=== PATIENT | male | born 1955 ===

== ENCOUNTER 2017-07-08 10:57 | Outpatient (CLI) | payer OTHER ==
--- NOTE | 2017-07-08 16:05 | Diagnostic Imaging Report ---
Indication: Abdominal pain, hepatitis C Technique: Brown-scale and duplex images of the upper abdomen were obtained Comparison: 07/11/2015 Findings: Gallbladder is unremarkable, without stones, wall thickening, nor pericholecystic fluid. Sonographic Brumfield's sign is negative. Common bile duct measures 9 mm in diameter. No intrahepatic biliary ductal dilatation. Liver demonstrates normal echogenicity, no focal abnormality. No surface nodularity. Portal vein and hepatic veins are patent. Pancreas is unremarkable. Spleen is unremarkable. Left kidney measures 10.8 cm in length. Right kidney measures 12.4 cm length. Both kidneys demonstrate normal echogenicity. There is no hydronephrosis. No focal abnormality . Non-aneurysmal abdominal aorta . No significant interim change other than the caliber of the common bile duct Impression: Mildly dilated common bile duct. Downstream obstruction not excludable. Correlate with liver function tests, consider MRCP for better characterization if clinically indicated No other significant abnormality. Negative for gallstones or hepatic abnormality
== END 2017-07-08 12:57 | disposition home or self-care (01) ==
LOC: ULS 10:57
DX: R10.9 Unspecified abdominal pain (principal); B19.20 Unspecified viral hepatitis C without hepatic coma
CPT/HCPCS: 76700

== ENCOUNTER → 2018-07-15 | Outpatient (CLI) | payer OTHER ==
--- NOTE | 2018-07-15 17:01 | Diagnostic Imaging Report ---
Indication: Abdominal pain Technique: Brown-scale and duplex images of the upper abdomen were obtained. Doppler interrogation of the hepatic and pancreatic vessels Comparison: 07/08/2017 Findings: Gallbladder is unremarkable, without stones, wall thickening, nor pericholecystic fluid. Sonographic Brumfield's sign is negative. Common bile duct measures 7 mm in diameter. No intrahepatic biliary ductal dilatation. Liver demonstrates normal echogenicity, no focal abnormality. No surface nodularity. Portal vein and hepatic veins are patent. Pancreas is unremarkable. Spleen is upper limits of normal in size, measuring 12.8 cm long axis dimension Left kidney measures 11.4 cm in length. Right kidney measures 11.8 cm length. Both kidneys demonstrate normal echogenicity. There is no hydronephrosis. . Focal area of increased echogenicity in the left renal sinus could represent a small calculus . Non-aneurysmal abdominal aorta . Impression: Borderline dilated common bile duct, also previously reported, probably baseline for this patient Negative for gallstones. No hepatic abnormality demonstrated Upper limits normal size spleen Small nonobstructive left lower pole renal calculus versus artifact
== END | disposition home or self-care (01) ==
LOC: ULS 14:42
DX: R10.9 Unspecified abdominal pain (principal)
CPT/HCPCS: 76700

== ENCOUNTER 2019-07-07 13:55 | Outpatient (CLI) | payer OTHER ==
--- NOTE | 2019-07-07 16:54 | Diagnostic Imaging Report ---
Indication: Abdominal pain, hepatitis C Technique: Brown-scale and duplex images of the upper abdomen were obtained Comparison: 07/15/2018 Findings: Gallbladder is unremarkable, without stones, wall thickening, nor pericholecystic fluid. Sonographic Brumfield's sign is negative. Common bile duct measures 7 mm in diameter. No intrahepatic biliary ductal dilatation. Liver demonstrates normal echogenicity, no focal abnormality. Portal vein and hepatic veins are patent. Pancreas is unremarkable. Spleen is unremarkable. Left kidney measures 11.5 cm in length. Right kidney measures 11.7 cm length. Both kidneys demonstrate normal echogenicity. There is no hydronephrosis. No focal abnormality . No free intraperitoneal fluid. Non-aneurysmal abdominal aorta . No significant interim change Impression: Essentially unremarkable exam. Normal gallbladder. No hepatic abnormality Mildly ectatic common bile duct, unchanged from earlier studies
== END 2019-07-07 15:55 | disposition home or self-care (01) ==
LOC: ULS 13:55
DX: R10.9 Unspecified abdominal pain (principal); Z86.19 Personal history of other infectious and parasitic diseases
CPT/HCPCS: 76700